=== PATIENT | female | born 1955 | race Caucasian/White ===

== ENCOUNTER 2021-02-18 09:05 | Emergency (ER) | payer SELFPAY ==
[~2021-02-18] VITALS: Ht 162.6 cm; Wt 79.4 kg
== END 2021-02-18 11:28 | disposition home or self-care (01) ==
LOC: ED 09:05
DX: S52.122A Displaced fracture of head of left radius, initial encounter for closed fracture (principal); S00.83XA Contusion of other part of head, initial encounter; W01.10XA Fall on same level from slipping, tripping and stumbling with subsequent striking against unspecified object, initial encounter; Z88.0 Allergy status to penicillin; Z88.8 Allergy status to other drugs, medicaments and biological substances; Z88.1 Allergy status to other antibiotic agents
CPT/HCPCS: 70486; 73090; 99284-25